=== PATIENT | male | born 1940 | race Caucasian/White ===

== ENCOUNTER → 2016-04-20 | Outpatient (REF) | payer MEDICARE, BC, OTHER ==
[~2016-04-20] MED LIST: /PANT40TA PO; ANDRGEL TOP; ASPI81TA85 PO; AVOD0.5C PO; BENI40TA3 PO; CALCTAB53 PO; CORE25TA PO; CRES5TAB PO; LEVO500T PO; MULTTAB4 PO; NOVO70VL SC; OMEG100011 PO; PRAD150C PO; SAWPOW XX; SITA50TAB PO; TORS10TA22 PO; TYLE325T5 PO; VIMP150T PO; vitaminD3 PO
== END ==
LOC: M LAB REF 11:39
PROVIDERS: ATTEND Internal Medicine
DX: N18.3 Chronic kidney disease, stage 3 (moderate) (principal)

== ENCOUNTER 2016-08-30 00:44 | Emergency (ER) | payer MEDICARE, BC, OTHER ==
[~2016-08-30] VITALS: Ht 193 cm; Wt 132.4 kg
[2016-08-30] MEDS ORDERED: HYDR200T3 PO (01:01)
[2016-08-30] MEDS ORDERED: ELIQ2.5T PO (01:01)
[2016-08-30] MEDS ORDERED: DRIS50002 PO (01:01)
[2016-08-30] MEDS ORDERED: RAPA8CAP PO (01:01)
[2016-08-30 02:39] VITALS: BP 122/61
== END 2016-08-30 02:41 | disposition home or self-care (01) ==
LOC: M ED 02:13
DX: R33.9 Retention of urine, unspecified (principal); E11.9 Type 2 diabetes mellitus without complications; I10 Essential (primary) hypertension; N40.0 Benign prostatic hyperplasia without lower urinary tract symptoms; Z87.442 Personal history of urinary calculi; Z88.8 Allergy status to other drugs, medicaments and biological substances; Z88.2 Allergy status to sulfonamides; Z79.899 Other long term (current) drug therapy; Z79.82 Long term (current) use of aspirin; Z79.4 Long term (current) use of insulin; Z79.01 Long term (current) use of anticoagulants

== ENCOUNTER 2016-08-30 18:34 | Emergency (ER) | payer MEDICARE, BC, OTHER ==
[~2016-08-30] VITALS: Ht 193 cm; Wt 132.4 kg
[~2016-08-30 18:34] MED LIST changes: +DRIS50002 PO; +ELIQ2.5T PO; +HYDR200T3 PO; +RAPA8CAP PO
[2016-08-30 19:39] VITALS: BP 146/78
== END 2016-08-30 19:45 | disposition home or self-care (01) ==
LOC: M ED 19:37
DX: Z46.6 Encounter for fitting and adjustment of urinary device (principal); I10 Essential (primary) hypertension; E11.9 Type 2 diabetes mellitus without complications; I48.91 Unspecified atrial fibrillation; Z88.8 Allergy status to other drugs, medicaments and biological substances; Z88.2 Allergy status to sulfonamides; Z79.899 Other long term (current) drug therapy; Z79.01 Long term (current) use of anticoagulants; Z79.82 Long term (current) use of aspirin; Z79.4 Long term (current) use of insulin; R33.9 Retention of urine, unspecified; N40.0 Benign prostatic hyperplasia without lower urinary tract symptoms; Z87.442 Personal history of urinary calculi

== ENCOUNTER 2016-09-06 10:47 | Emergency (ER) | payer MEDICARE, BC, OTHER ==
[~2016-09-06] VITALS: Ht 193 cm; Wt 129.7 kg
[2016-09-06] MEDS ORDERED: CORE20CA PO (11:09)
[2016-09-06] MEDS ORDERED: TORS20TA2 PO (11:09)
[2016-09-06] MEDS ORDERED: SITA50TAB PO (11:09)
[2016-09-06] MEDS ORDERED: BENI20TA5 PO (11:09)
[2016-09-06] MEDS ORDERED: AVOD0.5C PO (11:09)
[2016-09-06] MEDS ORDERED: NOVO70IN SC (11:09)
[2016-09-06] MEDS ORDERED: VIMP150T PO (11:09)
[2016-09-06] MEDS ORDERED: NOVO70VL SC ×2 (11:09)
[2016-09-06] MEDS ORDERED: CRES10TA32 PO (11:09)
[2016-09-06] MEDS ORDERED: ASPI81TA85 PO (11:09)
[2016-09-06] MEDS ORDERED: KEFL500C7 PO (11:10)
[2016-09-06 11:32] LABS: BASO % 0.7 % (0.0-1.0); EOS # 0.2 K/mm3 (0.0-0.50); EOS % 2.5 % (0.0-3.0); LARGE UNSTAINED CELL # 0.1 K/mm3 (0.0-0.4); LARGE UNSTAINED CELL % 1.8 % (0.0-4.0); LYMPH # 1.1 K/mm3 (1.5-4.5); LYMPH % 12.6 % (24.0-44.0); MEAN CORPUSCULAR HGB CONC 33.9 g/dl (32.0-36.5); MEAN CORPUSCULAR VOLUME 103.1 fl (80.0-96.0); MONO # 0.5 K/mm3 (0.0-0.8); MONO % 5.9 % (0.0-5.0); NEUTROPHILS # 5.9 K/mm3 (1.8-7.7); NEUTROPHILS % 76.5 % (36.0-66.0); PLATELET COUNT, AUTOMATED 187 k/mm3 (150-450); RED CELL DISTRIBUTION WIDTH 13.2 % (11.5-14.5); WHITE BLOOD COUNT 7.8 K/mm3 (4.0-10.0)
[2016-09-06 11:38] LABS: INR 1.11
--- NOTE | 2016-09-06 11:52 | REP ---
Chest two views HISTORY: Rule out pneumonia Comparison: 08/29/2015 There is elevation of the right hemidiaphragm. A very minimal increase in interstitial markings is present in the lungs consistent with chronic interstitial fibrosis. The heart is normal in size. The pulmonary vasculature is normal in appearance. The bony structure is intact. IMPRESSION: Minimal chronic interstitial fibrosis. Signed by Ketan Mccormick MD 09/06/2016 11:44 A
--- NOTE | 2016-09-06 11:55 | REP ---
CT HEAD WITHOUT CONTRAST: HISTORY: Rule out infarction. COMPARISON: 08/03/2012 Areas of decreased attenuation are present in the periventricular white matter. This represents small vessel ischemic disease. There is no intraparenchymal hemorrhage, mass, or midline shift. The ventricular system and cortical sulci as well as subarachnoid space in the posterior fossa are dilated, consistent with moderate volume loss. There is no extracerebral collection. The visualized sinuses are clear. IMPRESSION: 1. Small vessel ischemic disease. 2. Moderate volume loss. Signed by Ketan Mccormick MD 09/06/2016 12:00 P
[2016-09-06] MEDS ORDERED: NS 500 ML IV ONE (12:00)
[2016-09-06 12:15] LABS: ALBUMIN 3.6 GM/DL (3.2-5.2); ALBUMIN/GLOBULIN RATIO 0.95 (1.00-1.93); ALKALINE PHOSPHATASE 77 U/L (45-117); ALT/SGPT 36 U/L (12-78); ANION GAP 5 MEQ/L (8-16); AST/SGOT 23 U/L (15-37); BILIRUBIN,TOTAL 0.9 MG/DL (0.2-1.0); BLOOD UREA NITROGEN 40 MG/DL (7-18); CALCIUM LEVEL 9.6 MG/DL (8.8-10.2); CARBON DIOXIDE LEVEL 29 MEQ/L (21-32); CHLORIDE LEVEL 105 MEQ/L (98-107); CREATININE FOR GFR 1.56 MG/DL (0.70-1.30); GLOMERULAR FILTRATION RATE 46.4 (>42); GLUCOSE, FASTING 195 MG/DL (83-110); POTASSIUM SERUM 4.7 MEQ/L (3.5-5.1); SODIUM LEVEL 139 MEQ/L (136-145); TOTAL PROTEIN 7.4 GM/DL (6.4-8.2)
[2016-09-06 13:11] VITALS: BP 144/69
[2016-09-06 13:28] VITALS: O2SAT 98
--- NOTE | 2016-09-06 14:33 | ECGEPIP ---
Stationary ECG Study [facility] - ED Test Date: 2016-09-06 Pat Name: FARZANA BRAND Department: Room: - Gender: M [employer]: rn : [id number] Requested By: Selma Quach Order Number: [id number] Reading MD: Selma Quach Measurements Intervals [place] Rate: 64 P: ND: 0 QRS: 5 QRSD: 104 T: -39 QT: 374 QTc: 388 Interpretive Statements ATRIAL FIBRILLATION WITH ABERRANT CONDUCTION OR VENTRICULAR PREMATURE COMPLEXES NONSPECIFIC ST & T-WAVE ABNORMALITY ABNORMAL RHYTHM ECG PRIOR SINUS RHYTHM 09/06/12 Electronically Signed On 09-06-2016 14:32:54 EDT by Selma Quach
== END 2016-09-06 13:47 | disposition home or self-care (01) ==
LOC: M ED 11:36
DX: R42 Dizziness and giddiness (principal); R94.31 Abnormal electrocardiogram [ECG] [EKG]; N39.0 Urinary tract infection, site not specified; I48.91 Unspecified atrial fibrillation; Z86.73 Personal history of transient ischemic attack (TIA), and cerebral infarction without residual deficits; E78.00 Pure hypercholesterolemia, unspecified; I12.9 Hypertensive chronic kidney disease with stage 1 through stage 4 chronic kidney disease, or unspecified chronic kidney disease; G47.30 Sleep apnea, unspecified; N18.9 Chronic kidney disease, unspecified; Z79.899 Other long term (current) drug therapy; Z79.01 Long term (current) use of anticoagulants; Z79.82 Long term (current) use of aspirin; Z79.4 Long term (current) use of insulin; Z79.2 Long term (current) use of antibiotics; Z88.2 Allergy status to sulfonamides

== ENCOUNTER → 2017-01-08 | Outpatient (REF) | payer MEDICARE, BC, OTHER ==
[~2017-01-08] MED LIST changes: +BENI1TAB PO; +CORE20CA PO; +CRES10TA32 PO; +KEFL500C17 PO; +NOVO1INJ4 SC; +TORS20TA2 PO
[2017-01-08 13:45] LABS: BASO # 0.1 10^3/uL (0.0-0.2); BASO % 0.8 % (0.0-1.0); EOS # 0.2 10^3/uL (0.0-0.50); EOS % 2.1 % (0.0-3.0); IMMATURE GRANULOCYTE % 0.3 % (0-0); LYMPH # 1.3 10^3/uL (1.5-4.5); LYMPH % 14.3 % (24.0-44.0); MEAN CORPUSCULAR HEMOGLOBIN 34.9 pg (27.0-33.0); MEAN CORPUSCULAR HGB CONC 33.8 g/dl (32.0-36.5); MEAN CORPUSCULAR VOLUME 103.3 fl (80.0-96.0); MONO # 0.9 10^3/uL (0.0-0.8); MONO % 9.7 % (0.0-5.0); NEUTROPHILS # 6.6 10^3/uL (1.8-7.7); NEUTROPHILS % 72.8 % (36.0-66.0); PLATELET COUNT, AUTOMATED 202 10^3/uL (150-450); WHITE BLOOD COUNT 9.1 10^3/uL (4.0-10.0)
[2017-01-08 14:03] LABS: ALBUMIN/GLOBULIN RATIO 1.21 (1.00-1.93); CREATININE FOR GFR 1.46 MG/DL (0.70-1.30); POTASSIUM SERUM 4.8 MEQ/L (3.5-5.1); TOTAL PROTEIN 7.3 GM/DL (6.4-8.2)
== END ==
LOC: M LABNEURO 10:59
PROVIDERS: ATTEND Psychiatry & Neurology Neurology
DX: R41.3 Other amnesia (principal)

== ENCOUNTER → 2017-05-17 | Outpatient (REF) | payer MEDICARE, BC, OTHER ==
[2017-05-17 20:50] LABS: VITAMIN B12 LEVEL > 2000 PG/ML (247-911)
== END ==
LOC: M LAB REF 19:10
DX: F03.90 Unspecified dementia, unspecified severity, without behavioral disturbance, psychotic disturbance, mood disturbance, and anxiety (principal)
CPT/HCPCS: 82607